=== PATIENT | male | born 1975 | race Caucasian/White ===

== ENCOUNTER → 2022-05-18 15:05 | Outpatient (CLI) | payer OTHER, SELFPAY ==
--- NOTE | 2022-05-18 | DI.RAD.S_ITS ---
PROCEDURE: XR THORACIC SPINE 3V INDICATIONS: Sprain of ligaments of thoracic spine, initial encounter TECHNIQUE: 3 views of the thoracic spine were acquired. COMPARISON: None. FINDINGS: Bones: No fractures or dislocations. There is mild intervertebral disc space narrowing and trace osteophytosis. No suspicious bony lesions. 12 pairs of ribs are noted, and appear intact where visualized. Soft tissues: No paravertebral stripe thickening. 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 Dictated by: Sully Espino M.D. on 05/18/2022 at 16:27 Approved by: Sully Espino M.D. on 05/18/2022 at 16:28
== END ==
PROVIDERS: Referring Provider Chiropractor; Visit Provider Chiropractor
DX: S23.3XXA Sprain of ligaments of thoracic spine, initial encounter (principal); M47.814 Spondylosis without myelopathy or radiculopathy, thoracic region; X58.XXXA Exposure to other specified factors, initial encounter
CPT/HCPCS: 72072